=== PATIENT | female | born 1940 | race Hispanic/Latino ===

== ENCOUNTER → 2024-05-08 | Outpatient (CLI) | payer MEDICARE ==
--- NOTE | 2024-05-15 17:11 | HMCSR ---
APPROVED REPORT Laterality: Bilateral Indications Claudication: , PAD VELOCITY AND DOPPLER WAVEFORM ANALYSIS MANAGEMENT SPECIALIST (R) 91.5cm/sec, Biphasic, MANAGEMENT SPECIALIST (L) 127.2cm/sec, Biphasic, Prof Fem Art. (R) 125.6cm/sec, Biphasic, Prof Fem Art. (L) 56.6cm/sec, Biphasic, Fem Art Prox. (R) 58.7cm/sec, Biphasic, Fem Art Prox. (L) 49.9cm/sec, Biphasic, Fem Art Mid. (R) 60.4cm/sec, Biphasic, Fem Art Mid. (L) 62.8cm/sec, Biphasic, Fem Art Dist (R) 41.5cm/sec, Biphasic, Fem Art Dist. (L) 61.4cm/sec, Biphasic, Pop Art(AK) (R) 42.1cm/sec, Biphasic, Pop Art (AK) (L) 58.0cm/sec, Biphasic, Pop Art (Fossa)(R) 29.7cm/sec, Biphasic, Pop Art (Fossa) (L) 93.8cm/sec, Biphasic, Pop Art(BK) (R) 52.7cm/sec, Biphasic, Pop Art (BK) (L) 98.4cm/sec, Biphasic, CCIE Prox. (R) cm/sec, Occluded, Occluded CCIE Prox. (L) 14.7cm/sec, Monophasic, CCIE Mid. (R) cm/sec, Occluded, Occluded CCIE Mid. (L) cm/sec, Occluded, Occluded CCIE Dist. (R) 14.7cm/sec, Monophasic, Recollateralized CCIE Dist. (L) 27.7cm/sec, Monophasic, Rec ollateralized Per Art Prox. (R) 24.1cm/sec, Monophasic, Per Art Prox. (L) 63.6cm/sec, Biphasic, Per Art Mid. (R) 20.2cm/sec, Monophasic, Per Art Mid. (L) 54.6cm/sec, Biphasic, Per Art Dist. (R) 19.1cm/sec, Monophasic, Per Art Dist. (L) 44.0cm/sec, Biphasic, [place]IA Prox. (R) 30.8cm/sec, Monophasic, INDIA Prox. (L) 38.3cm/sec, Biphasic, [place] Mid. (R) cm/sec, Occluded Occluded INDIA Mid. (L) 41.6cm/sec, Biphasic, [place] Dist. (R) cm/sec, Occluded, Occluded [place] Dist. (L) cm/sec, Occluded, Occluded Technologist Impression Right: Tibialperoneal trunk appears occluded, including the proximal to mid CCIE. Recollateralized flow demonstrated in the distal CCIE. Mid to distal [place] appears occluded. Left: Mid CCIE appears occluded with recollateralized flow distally. Occlusion of the distal [place]. Conclusion Right: Tibialperoneal trunk has monophasic waveforms (>70%) extending to peroneal and CCIE suggestive of hig h grade stenosis Left: Distal [place] and Mid CCIE with monophasic waveforms (>70% stenosis) suggestive of high grade stenosis. Conclusion Right: Tibialperoneal trunk has monophasic waveforms (>70%) extending to peroneal and CCIE suggestive of hig h grade stenosis Left: Distal [place] and Mid CCIE with monophasic waveforms (>70% stenosis) suggestive of high grade stenosis.
== END | disposition home or self-care (01) ==
LOC: SHCH 09:23
PROVIDERS: ATTEND Internal Medicine
DX: I73.9 Peripheral vascular disease, unspecified (principal); R94.31 Abnormal electrocardiogram [ECG] [EKG]
CPT/HCPCS: 93306; 93925